=== PATIENT | male | born 1990 | race Caucasian/White ===

== ENCOUNTER 2023-02-16 14:58 | Emergency (ER) | payer MEDICAID ==
[~2023-02-16] VITALS: Ht 177.8 cm; Wt 94.0 kg
[2023-02-16 15:03] VITALS: O2SAT 100
[2023-02-16] MEDS ORDERED: FAMOTIDINE 20MG/2ML VIAL IV ONE (15:15)
[2023-02-16] MEDS ORDERED: METHYLPREDNISOLONE SOD SUCC 125MG/2ML (ACT-O-VIAL) IV ONE (15:15)
[2023-02-16] MEDS ORDERED: DIPHENHYDRAMINE 50MG/ML VIAL IV ONE (15:15)
[2023-02-16] MEDS ORDERED: SODIUM CHLORIDE 0.9% 1,000 ML IV SCH (15:15)
[2023-02-16 17:30] VITALS: BP 135/84; PULSE 90; RESP 16; TEMP 98.3
[2023-02-16] MEDS ORDERED: EPIN0.3P3 IM (17:34)
== END 2023-02-16 18:00 | disposition home or self-care (01) ==
LOC: ER 14:58
DX: T78.2XXA Anaphylactic shock, unspecified, initial encounter (principal); X58.XXXA Exposure to other specified factors, initial encounter; Y93.89 Activity, other specified; Y92.89 Other specified places as the place of occurrence of the external cause; Y99.8 Other external cause status
CPT/HCPCS: 93005; 96361; 96374; 96375; 99284; J1200; J3490; J2930; Z7610 ×2